=== PATIENT | male | born 1980 | race Caucasian/White ===

== ENCOUNTER 2017-12-27 10:30 | Outpatient (CLI) | payer OTHER | END 2017-12-27 10:32 | disposition home or self-care (01) | LOC: LAB 10:30 | DX: D50.8 Other iron deficiency anemias (principal); E03.8 Other specified hypothyroidism; E78.2 Mixed hyperlipidemia; I11.9 Hypertensive heart disease without heart failure; E56.8 Deficiency of other vitamins; N39.0 Urinary tract infection, site not specified; Z12.11 Encounter for screening for malignant neoplasm of colon; R19.5 Other fecal abnormalities; E55.9 Vitamin D deficiency, unspecified; N19 Unspecified kidney failure; E11.9 Type 2 diabetes mellitus without complications; R80.8 Other proteinuria; K92.1 Melena ==

== ENCOUNTER 2018-01-03 08:07 | Outpatient (CLI) | payer OTHER | END 2018-01-03 08:17 | disposition home or self-care (01) | LOC: LAB 08:07 | DX: D50.8 Other iron deficiency anemias (principal); E03.8 Other specified hypothyroidism; E78.2 Mixed hyperlipidemia; I11.9 Hypertensive heart disease without heart failure; E56.8 Deficiency of other vitamins; N39.0 Urinary tract infection, site not specified; Z12.11 Encounter for screening for malignant neoplasm of colon; R19.5 Other fecal abnormalities; E55.9 Vitamin D deficiency, unspecified; N19 Unspecified kidney failure; E11.9 Type 2 diabetes mellitus without complications; R80.8 Other proteinuria; C18.9 Malignant neoplasm of colon, unspecified; K92.1 Melena ==

== ENCOUNTER 2018-10-25 14:17 | Outpatient (CLI) | payer OTHER | END 2018-10-25 14:19 | disposition home or self-care (01) | LOC: MRI 14:17 | DX: M25.562 Pain in left knee (principal) | CPT/HCPCS: 73721 ==

== ENCOUNTER 2018-12-21 06:37 | Outpatient (CLI) | payer OTHER | END 2018-12-21 06:50 | disposition home or self-care (01) | LOC: LAB 06:37 | DX: D50.8 Other iron deficiency anemias (principal); E03.8 Other specified hypothyroidism; E78.2 Mixed hyperlipidemia; I11.9 Hypertensive heart disease without heart failure; E56.8 Deficiency of other vitamins; N39.0 Urinary tract infection, site not specified; Z12.11 Encounter for screening for malignant neoplasm of colon; E55.9 Vitamin D deficiency, unspecified; N19 Unspecified kidney failure; E11.9 Type 2 diabetes mellitus without complications; K92.1 Melena; C18.8 Malignant neoplasm of overlapping sites of colon; R80.8 Other proteinuria ==

== ENCOUNTER 2019-06-27 06:31 | Outpatient (CLI) | payer OTHER | END 2019-06-27 06:40 | disposition home or self-care (01) | LOC: LAB 06:31 | DX: D50.8 Other iron deficiency anemias (principal); E03.8 Other specified hypothyroidism; E78.2 Mixed hyperlipidemia; I11.9 Hypertensive heart disease without heart failure; E56.8 Deficiency of other vitamins; N39.0 Urinary tract infection, site not specified; Z12.11 Encounter for screening for malignant neoplasm of colon; E55.9 Vitamin D deficiency, unspecified; N19 Unspecified kidney failure; R80.8 Other proteinuria; C18.0 Malignant neoplasm of cecum; K92.1 Melena ==

== ENCOUNTER 2019-12-13 16:36 | Emergency (ER) | payer OTHER ==
[~2019-12-13] VITALS: Ht 180.3 cm; Wt 133.8 kg
[2019-12-13] MEDS ORDERED: ATORVASTATIN CA10 MG (17:19)
[2019-12-13] MEDS ORDERED: METFORMIN HCL1000 M2 (17:20)
[2019-12-13] MEDS ORDERED: SYNTHROID125 MCG (17:20)
== END 2019-12-14 01:58 | disposition home or self-care (01) ==
LOC: ER 16:36
DX: K52.89 Other specified noninfective gastroenteritis and colitis (principal)

== ENCOUNTER 2020-01-24 09:07 | Outpatient (CLI) | payer OTHER ==
[~2020-01-24 09:07] MED LIST: ATORVASTATIN CA10 MG; METFORMIN HCL1000 M2; SYNTHROID125 MCG
== END 2020-01-24 09:20 | disposition home or self-care (01) ==
LOC: LAB 09:07
PROVIDERS: ATTEND Internal Medicine Geriatric Medicine
DX: D50.8 Other iron deficiency anemias (principal); E03.8 Other specified hypothyroidism; E78.2 Mixed hyperlipidemia; I11.9 Hypertensive heart disease without heart failure; E56.8 Deficiency of other vitamins; N39.0 Urinary tract infection, site not specified; Z12.11 Encounter for screening for malignant neoplasm of colon; E55.9 Vitamin D deficiency, unspecified; N19 Unspecified kidney failure; E11.9 Type 2 diabetes mellitus without complications; R80.8 Other proteinuria; C18.0 Malignant neoplasm of cecum; K92.1 Melena

== ENCOUNTER 2020-02-11 07:50 | Outpatient (CLI) | payer OTHER | END 2020-02-11 07:59 | disposition home or self-care (01) | LOC: NUCLEAR 07:50 | PROVIDERS: ATTEND Internal Medicine Geriatric Medicine | DX: I11.9 Hypertensive heart disease without heart failure (principal) ==

== ENCOUNTER 2021-04-01 08:06 | Outpatient (CLI) | payer OTHER | END 2021-04-01 08:24 | disposition home or self-care (01) | LOC: TOM 08:06 | DX: C18.4 Malignant neoplasm of transverse colon (principal) ==

== ENCOUNTER → 2021-04-01 | Outpatient (CLI) | payer OTHER | END | disposition home or self-care (01) | LOC: LAB 09:01 | PROVIDERS: ATTEND Radiology Diagnostic Radiology | DX: N20.0 Calculus of kidney (principal) ==

== ENCOUNTER → 2021-04-21 06:15 | Outpatient (CLI) | payer OTHER | END | disposition home or self-care (01) | LOC: LAB 06:15 | PROVIDERS: ATTEND Colon & Rectal Surgery | DX: C18.4 Malignant neoplasm of transverse colon (principal) ==

== ENCOUNTER 2021-04-21 07:15 | Outpatient (CLI) | payer OTHER | END 2021-04-21 07:16 | disposition home or self-care (01) | LOC: NUCLEAR 07:15 | PROVIDERS: ATTEND Colon & Rectal Surgery | DX: C18.4 Malignant neoplasm of transverse colon (principal) | CPT/HCPCS: 78815; A9552 ==

== ENCOUNTER 2021-09-15 08:39 | Outpatient (CLI) | payer OTHER | END 2021-09-15 08:40 | disposition home or self-care (01) | LOC: LAB 08:39 | PROVIDERS: ATTEND Surgery | DX: Z11.52 Encounter for screening for COVID-19 (principal); Z12.5 Encounter for screening for malignant neoplasm of prostate ==

== ENCOUNTER 2021-10-19 09:24 | Outpatient (CLI) | payer OTHER | END 2021-10-19 09:33 | disposition home or self-care (01) | LOC: LAB 09:24 | PROVIDERS: ATTEND Internal Medicine Geriatric Medicine | DX: D50.9 Iron deficiency anemia, unspecified (principal); D03.9 Melanoma in situ, unspecified; E78.2 Mixed hyperlipidemia; I11.9 Hypertensive heart disease without heart failure; E56.8 Deficiency of other vitamins; N39.0 Urinary tract infection, site not specified; Z12.11 Encounter for screening for malignant neoplasm of colon; R19.5 Other fecal abnormalities; E55.9 Vitamin D deficiency, unspecified; N19 Unspecified kidney failure; E11.9 Type 2 diabetes mellitus without complications; E03.9 Hypothyroidism, unspecified; E11.65 Type 2 diabetes mellitus with hyperglycemia ==

== ENCOUNTER 2021-10-22 13:12 | Outpatient (CLI) | payer OTHER | END 2021-10-22 13:21 | disposition home or self-care (01) | LOC: SONOGRAMA 13:12 | DX: E04.2 Nontoxic multinodular goiter (principal) ==

== ENCOUNTER 2022-11-10 09:02 | Outpatient (CLI) | payer OTHER | END 2022-11-10 09:14 | disposition home or self-care (01) | LOC: RAD 09:02 | PROVIDERS: ATTEND Internal Medicine Geriatric Medicine | DX: R10.9 Unspecified abdominal pain (principal); M54.59 Other low back pain | CPT/HCPCS: 72148 ==